=== PATIENT | male | born 1990 | race American Indian/Alaskan Native ===

== ENCOUNTER 2017-06-04 10:50 | Emergency (ER) | payer OTHER ==
[2017-06-04] MEDS ORDERED: NACL 0.9% 1000 ML 1,000 ML IV ONE ×2 (10:54)
--- NOTE | 2017-06-04 11:07 | Emergency Department Report ---
HPI - General Time Seen by Provider: 06/04/17 10:52 - HPI HPI: Room 21 The patient is a 27-year-old male presenting with chief complaint cardiac arrest. Per EMS the patient's roommate reports he had been up this morning vomiting after consuming alcohol last night. The roommate went to check on the patient is morning and found him unresponsive in bed. EMS was called and when they arrived they found the patient with agonal respirations. EMS states they were unable to palpate a pulse and the patient was declared to be in PEA. Patient was intubated by EMS and CPR initiated. Patient was diminished to 2 rounds of epinephrine and 1 calcium. Arrival to the ED patient was found to be in sinus tach and normotensive but unresponsive. Location: Cardiovascular system Duration: [see above] Quality: Unresponsive Severity: Severe Modifying factors: [see above] Context: [see above] Mode of transportation: [not driving] ED Past Medical Hx - Past Medical History Previous Medical History?: No - Surgical History Past Surgical History?: No - Family History Family history: no significant - Social History Smoking Status: Unknown if ever smoked Substance Use Type: Alcohol ED Review of Systems ROS: Stated complaint: NON RESPONSIVE Other details as noted in HPI Comment: Unobtainable due to pts medical conditions Physical Exam - Physical Exam Physical Exam: GENERAL: The patient is well-developed well-nourished male unresponsive on stretcher being bagged via ET tube HEENT: Normocephalic. Atraumatic. Pupils 6 mm and nonreactive bilaterally NECK: Supple. Trachea midline CHEST/LUNGS: Breath sounds are auscultated bilaterally with bagging HEART/CARDIOVASCULAR: Regular. There is tachycardia. There is no gallop rub or murmur. ABDOMEN: Abdomen is soft. There is no abdominal distention. SKIN: There is no rash. There is no edema. There is no diaphoresis. NEURO: GCS 3T MUSCULOSKELETAL: here is no evidence of acute injury. ED Course - Reevaluation(s) Reevaluation #1: 06/04/17 11:07 Patient became bradycardic in the 30s and then PEA. ACLS protocols continued with return of spontaneous circulation - Consultations Consultation #1: 06/04/17 13:29 Case discussed with neurosurgeon Dr. Ibarra- states that he would not be able to follow with the patient. Consultation #2: 06/04/17 13:32 [place] transfer line called- no beds available 06/04/17 13:35 Consultation #3: 06/04/17 13:36 [facility] transfer line called 06/04/17 13:48 Case discussed with the ED physician Dr. Ng and neurosurgeon Dr. Akshat Aguilera - [place] [facility] [place] Medical Decision Making - Lab Data Result diagrams: 06/04/17 11:14 06/04/17 11:14 Laboratory Tests 06/04/17 06/04/17 06/04/17 11:14 11:14 11:14 WBC 9.5 RBC 3.86 Hgb 10.6 L Hct 34.6 L MCV 90 MCH 28 MCHC 31 L RDW 19.3 H Plt Count 306 Lymph % (Auto) 8.6 L Garza % (Auto) 2.3 Eos % (Auto) 0.1 Baso % (Auto) 0.2 Lymph # 0.8 L Garza # 0.2 Eos # 0.0 Baso # 0.0 Seg Neutrophils % 88.8 H Seg Neutrophils # 8.5 H PT 19.3 H INR 1.54 H APTT 33.1 POC ABG pH POC ABG pCO2 POC ABG pO2 POC ABG HCO3 POC ABG Total CO2 POC ABG O2 Sat POC ABG Base Excess FiO2 Sodium 136 L Potassium 3.5 L Chloride 98.0 Carbon Dioxide 19 L Anion Gap 23 BUN 11 Creatinine 1.1 Estimated GFR > 60 BUN/Creatinine Ratio 10.00 Glucose 298 H Calcium 11.1 H Magnesium Total Bilirubin 0.90 AST 34 ALT 14 Alkaline Phosphatase 78 Ammonia Total Creatine Kinase 62 CK-MB (CK-2) < 1.0 CK-MB (CK-2) Rel Index 1.6 Troponin T < 0.010 NT-Pro-B Natriuret Pep 1556 H Total Protein 8.8 H Albumin 2.4 L Albumin/Globulin Ratio 0.4 TSH Free T4 Urine Color Urine Turbidity Urine pH Ur Specific [place] Urine Protein Urine Glucose (UA) Urine Ketones Urine Blood Urine Nitrite Urine Bilirubin Urine Urobilinogen Ur Leukocyte Esterase Urine WBC (Auto) Urine RBC (Auto) U Epithel Cells (Auto) Urine Bacteria (Auto) Urine Mucus Urine Opiates Screen Urine Methadone Screen Ur Barbiturates Screen Ur Phencyclidine Scrn Ur Amphetamines Screen U Benzodiazepines Scrn Urine Cocaine Screen U Marijuana (THC) Screen Drugs of Abuse Note Plasma/Serum Alcohol 06/04/17 06/04/17 06/04/17 11:14 11:14 11:14 WBC RBC Hgb Hct MCV MCH MCHC RDW Plt Count Lymph % (Auto) Garza % (Auto) Eos % (Auto) Baso % (Auto) Lymph # Garza # Eos # Baso # Seg Neutrophils % Seg Neutrophils # PT INR APTT POC ABG pH POC ABG pCO2 POC ABG pO2 POC ABG HCO3 POC ABG Total CO2 POC ABG O2 Sat POC ABG Base Excess FiO2 Sodium Potassium Chloride Carbon Dioxide Anion Gap BUN Creatinine Estimated GFR BUN/Creatinine Ratio Glucose Calcium Magnesium Total Bilirubin AST ALT Alkaline Phosphatase Ammonia 77.0 H Total Creatine Kinase CK-MB (CK-2) CK-MB (CK-2) Rel Index Troponin T NT-Pro-B Natriuret Pep Total Protein Albumin Albumin/Globulin Ratio TSH 2.250 Free T4 0.59 L Urine Color Urine Turbidity Urine pH Ur Specific [place] Urine Protein Urine Glucose (UA) Urine Ketones Urine Blood Urine Nitrite Urine Bilirubin Urine Urobilinogen Ur Leukocyte Esterase Urine WBC (Auto) Urine RBC (Auto) U Epithel Cells (Auto) Urine Bacteria (Auto) Urine Mucus Urine Opiates Screen Urine Methadone Screen Ur Barbiturates Screen Ur Phencyclidine Scrn Ur Amphetamines Screen U Benzodiazepines Scrn Urine Cocaine Screen U Marijuana (THC) Screen Drugs of Abuse Note Plasma/Serum Alcohol < 0.01 06/04/17 06/04/17 06/04/17 11:14 11:17 11:17 WBC RBC Hgb Hct MCV MCH MCHC RDW Plt Count Lymph % (Auto) Garza % (Auto) Eos % (Auto) Baso % (Auto) Lymph # Garza # Eos # Baso # Seg Neutrophils % Seg Neutrophils # PT INR APTT POC ABG pH POC ABG pCO2 POC ABG pO2 POC ABG HCO3 POC ABG Total CO2 POC ABG O2 Sat POC ABG Base Excess FiO2 Sodium Potassium Chloride Carbon Dioxide Anion Gap BUN Creatinine Estimated GFR BUN/Creatinine Ratio Glucose Calcium Magnesium 2.20 Total Bilirubin AST ALT Alkaline Phosphatase Ammonia Total Creatine Kinase CK-MB (CK-2) CK-MB (CK-2) Rel Index Troponin T NT-Pro-B Natriuret Pep Total Protein Albumin Albumin/Globulin Ratio TSH Free T4 Urine Color Red Urine Turbidity Clear Urine pH 6.0 Ur Specific [place] 1.005 Urine Protein 100 mg/dl Urine Glucose (UA) 50 Urine Ketones Neg Urine Blood Lg Urine Nitrite Neg Urine Bilirubin Neg Urine Urobilinogen < 2.0 Ur Leukocyte Esterase Tr Urine WBC (Auto) 5.0 Urine RBC (Auto) > 182.0 U Epithel Cells (Auto) 1.0 Urine Bacteria (Auto) 1+ Urine Mucus Few Urine Opiates Screen Presumptive negative Urine Methadone Screen Presumptive negative Ur Barbiturates Screen Presumptive negative Ur Phencyclidine Scrn Presumptive negative Ur Amphetamines Screen Presumptive negative U Benzodiazepines Scrn Presumptive negative Urine Cocaine Screen Presumptive negative U Marijuana (THC) Screen Presumptive negative Drugs of Abuse Note Disclamer Plasma/Serum Alcohol 06/04/17 11:38 WBC RBC Hgb Hct MCV MCH MCHC RDW Plt Count Lymph % (Auto) Garza % (Auto) Eos % (Auto) Baso % (Auto) Lymph # Garza # Eos # Baso # Seg Neutrophils % Seg Neutrophils # PT INR APTT POC ABG pH 7.107 L POC ABG pCO2 58.2 H POC ABG pO2 336 H POC ABG HCO3 18.4 POC ABG Total CO2 20 POC ABG O2 Sat 100 POC ABG Base Excess -11 FiO2 100 Sodium Potassium Chloride Carbon Dioxide Anion Gap BUN Creatinine Estimated GFR BUN/Creatinine Ratio Glucose Calcium Magnesium Total Bilirubin AST ALT Alkaline Phosphatase Ammonia Total Creatine Kinase CK-MB (CK-2) CK-MB (CK-2) Rel Index Troponin T NT-Pro-B Natriuret Pep Total Protein Albumin Albumin/Globulin Ratio TSH Free T4 Urine Color Urine Turbidity Urine pH Ur Specific [place] Urine Protein Urine Glucose (UA) Urine Ketones Urine Blood Urine Nitrite Urine Bilirubin Urine Urobilinogen Ur Leukocyte Esterase Urine WBC (Auto) Urine RBC (Auto) U Epithel Cells (Auto) Urine Bacteria (Auto) Urine Mucus Urine Opiates Screen Urine Methadone Screen Ur Barbiturates Screen Ur Phencyclidine Scrn Ur Amphetamines Screen U Benzodiazepines Scrn Urine Cocaine Screen U Marijuana (THC) Screen Drugs of Abuse Note Plasma/Serum Alcohol - EKG Data -: EKG Interpreted by Nc EKG shows normal: sinus rhythm Rate: tachycardia (131 bpm) - EKG Data When compared to previous EKG there are: previous EKG unavailable Interpretation: nonspecific ST-T wave rbodie (ST depression in leads 1, 2, aVL, V3 , V4, V5, V6) - Radiology Data Radiology results: report reviewed (CT head, CT chest), image reviewed (chest x- ray, CT head, CT chest) interpreted by me: Chest x-ray-ET tube in place. No focal infiltrates, no pneumothorax CT chest (read by radiologist) (-no pulmonary lives. Bilateral lower lobe partial collapse of left upper lobe and left lower lobe patchy airspace disease. Cardiomegaly and left ventricular hypertrophy but no CHF CT head (read by radiologist)-diffuse cerebral edema with suspected bilateral transtentorial herniation. No evidence of hemorrhage. - Differential Diagnosis respiratory arrest, aspiration, cardiac arrest Critical care attestation.: If time is entered above; I have spent that time in minutes in the direct care of this critically ill patient, excluding procedure time. ED Disposition Clinical Impression: Cardiac arrest, Cerebral edema Disposition: OP ADMIT IP TO THIS HOSP Is pt being admited?: No Does the pt Need Aspirin: No Condition: Poor Referrals: PRIMARY CARE, [Primary Care Provider] - 3-5 Days Time of Disposition: 13:49 (awaiting transport) Blank Doc - Documentation Documentation: Central line note Consent was unobtainable Location: Right femoral The site was prepped and draped in a sterile fashion Site was anesthetized with lidocaine 1% approximately 3 mL Landmarks identified and needle introduced until return of dark nonpulsatile blood Blood was obtained on first attempt Guidewire introduced using Seldinger technique and triple lumen catheter placed over guidewire There was blood return from all 3 ports Catheter was secured to patient by adhesive The patient tolerated procedure well There were no complications
[2017-06-04] MEDS ORDERED: ARTIFICIAL TEARS OPHTH OINT OU PRN (11:09)
[2017-06-04] MEDS ORDERED: VASELINE LIP THERAPY TP PRN (11:09)
[2017-06-04] MEDS ORDERED: INTROPIN DRIP 800 MG/D5W 250 ML 800 MG/250 ML BAG IV ONE ×2 (11:16→11:55)
[2017-06-04 11:18] LABS: Urine Drugs of Abuse Note Disclamer
[2017-06-04 11:19] LABS: Basophils % (Auto) 0.2 % (0.0-1.8); Eosinophils % (Auto) 0.1 % (0.0-4.3); Hematocrit 34.6 % (35.5-45.6); Hemoglobin 10.6 gm/dl (11.8-15.2); Mean Corpuscular HGB Conc 31 % (32-34); Mean Corpuscular Hemoglobin 28 pg (28-32); Mean Corpuscular Volume 90 fl (84-94); Platelet Count 306 K/mm3 (140-440); Red Blood Count 3.86 M/mm3 (3.65-5.03); Red Cell Distribution Width 19.3 % (13.2-15.2); White Blood Count 9.5 K/mm3 (4.5-11.0)
[2017-06-04] MEDS ORDERED: LEVOPHED DRIP 4 MG/NS 250 ML 4 MG/250 ML BAG IV ONE ×2 (11:22→11:29)
[2017-06-04 11:29] LABS: INR 1.54 (0.87-1.13)
[2017-06-04 11:30] LABS: Partial Thromboplastin Time 33.1 Sec. (24.2-36.6)
[2017-06-04 11:36] LABS: Bacteria,Urine 1+ /HPF (Negative); Bilirubin,Urine NEG (Negative); Blood,Urine LG (Negative); Ketones,Urine NEG (Negative); Leukocyte Esterase,Urine TR (Negative); Mucus,Urine FEW /HPF; Nitrite,Urine NEG (Negative); Urobilinogen,Urine < 2.0 mg/dL (<2.0)
[2017-06-04 11:37] LABS: RBC,Urine > 182.0 /HPF (0.0-6.0)
[2017-06-04 11:40] LABS: Alanine Aminotransferase 14 units/L (7-56); Albumin 2.4 g/dL (3.9-5); Albumin/Globulin Ratio 0.4 %; Alkaline Phosphatase 78 units/L (35-129); Anion Gap 23 mmol/L; Blood Urea Nitrogen 11 mg/dL (9-20); Calcium 11.1 mg/dL (8.4-10.2); Carbon Dioxide 19 mmol/L (22-30); Creatine Kinase 62 units/L (55-170); Glucose 298 mg/dL (75-100); Potassium 3.5 mmol/L (3.6-5.0); Sodium 136 mmol/L (137-145); Total Protein 8.8 g/dL (6.3-8.2)
[2017-06-04 11:42] LABS: ISTAT Base Excess -11; ISTAT HCO3 18.4; ISTAT PCO2 58.2 (35-45); ISTAT PH 7.107 (7.35-7.45); ISTAT PO2 336 (80-105); ISTAT SO2 100; ISTAT TCO2 20
[2017-06-04 11:50] LABS: Creatine Kinase MB < 1.0 ng/mL (0.0-4.0)
[2017-06-04] MEDS ORDERED: SODIUM BICARBONATE IV ONE ×2 (11:57→13:00)
[2017-06-04] MEDS ORDERED: NACL 0.9% 500 ML IV SCH (12:00)
--- NOTE | 2017-06-04 12:20 | XRay Report ---
AP CHEST :06/04/17 11:08 CLINICAL: Post intubation. Cardiac arrest. COMPARISON:None. FINDINGS: An endotracheal tube is in satisfactory position. A nasogastric tube is in satisfactory position. The heart is large. Central vascular congestion and indistinctness of the pulmonary vessels. Hazy lung gannon. No pneumothorax. IMPRESSION: Satisfactory position of the endotracheal tube.Pulmonary edema.
[2017-06-04] MEDS ORDERED: NACL ONE (12:38)
--- NOTE | 2017-06-04 13:17 | Cat Scan Report ---
CT HEAD WITHOUT CONTRAST: 06/04/17 12:52 CLINICAL: Status post cardiac arrest. Unresponsive. TECHNIQUE: 2.5-mm noncontrast scans. COMPARISON:None FINDINGS: The ventricles are small and no visible sulci. Decreased ochoa-white differentiation. The CSF spaces are obliterated at the skull base and at the foramen magnum. Midbrain and effacement and inferior displacement. No abnormal focal density. No mass or mass effect. No hemorrhage, edema or extra-axial collection. The sinuses are clear. Normal orbits and soft tissues. The calvarium and skull base are intact. IMPRESSION: Diffuse cerebral edema with suspected bilateral transtentorial herniation. No evidence of hemorrhage.
--- NOTE | 2017-06-04 13:22 | Cat Scan Report ---
CT CHEST WITH CONTRAST: 06/04/17 12:30:00 CLINICAL: Status post cardiac arrest. TECHNIQUE: PE protocol with volumetric acquisition and 1.25 mm scan reconstructions after the uneventful intravenous injection of 100 cc Omnipaque 350. FINDINGS: Good opacification of the pulmonary arteries and no pulmonary artery thrombus identified. Patchy left upper lobe airspace disease. Bilateral lower lobe partial collapse and patchy left lower lobe airspace disease. No pleural effusion. The heart is large with a relatively thick left ventricular wall. Normal aorta. Normal thyroid, trachea and esophagus. An endotracheal tube is in satisfactory position. The upper abdomen is unremarkable. The bones and soft tissues are normal. IMPRESSION: No pulmonary embolus. Bilateral lower lobe partial collapse and left upper lobe and left lower lobe patchy airspace disease. Cardiomegaly and left ventricular hypertrophy but no CHF.
[2017-06-04] MEDS ORDERED: OSMITROL 20% IV ONE (13:24)
[2017-06-04 15:10] VITALS: BP 127/96
== END 2017-06-04 15:12 | disposition admitted as inpatient to this hospital (09) ==
LOC: ED 10:50
DX: I46.9 Cardiac arrest, cause unspecified (principal); G93.6 Cerebral edema
CPT/HCPCS: 36415; 36556; 51702; 70450; 71010; 71275; 80053; 80307; 81001; 82140; 82550; 82553; 82803; 83735; 83880; 84439; 84443; 84484; 85025; 85610; 85730; 93005; 93010; 96361; 96374; 99285; G0480; J1265; J2150; J7030; Q9967; 80320; 94002